=== PATIENT | female | born 1945 | race African-American/Black ===

== ENCOUNTER 2016-06-11 11:11 | Emergency (ER) | payer MEDICARE | END 2016-06-11 11:29 | disposition home or self-care (01) | LOC: NAV ERS 11:11 | DX: T16.1XXA Foreign body in right ear, initial encounter (principal); I10 Essential (primary) hypertension; F41.9 Anxiety disorder, unspecified; Z87.891 Personal history of nicotine dependence; Z79.899 Other long term (current) drug therapy | CPT/HCPCS: 99282 ==

== ENCOUNTER 2016-10-01 08:00 | Emergency (ER) | payer MEDICARE ==
[2016-10-01] MEDS ORDERED: HYDROcodone/Acetaminophen 10/325 mg Tablet ONE (08:24)
== END 2016-10-01 08:32 | disposition home or self-care (01) ==
LOC: NAV ERS 08:00
DX: J20.9 Acute bronchitis, unspecified (principal); I10 Essential (primary) hypertension; F41.9 Anxiety disorder, unspecified; Z87.891 Personal history of nicotine dependence; Z79.899 Other long term (current) drug therapy
CPT/HCPCS: 99283

== ENCOUNTER 2018-04-19 11:43 | Emergency (ER) | payer MEDICARE ==
[2018-04-19] MEDS ORDERED: cefTRIAXone\\ROCEPHIN 1 GM VIAL ONE (13:08)
[2018-04-19] MEDS ORDERED: methylPREDNISolone Acetate 40 mg/ml Vial ONE (13:08)
[2018-04-19] MEDS ORDERED: Lidocaine 1% (PF) 30 ML VIAL ONE (13:09)
== END 2018-04-19 13:36 | disposition home or self-care (01) ==
LOC: NAV ERS 11:43
DX: J02.9 Acute pharyngitis, unspecified (principal); I10 Essential (primary) hypertension; F41.9 Anxiety disorder, unspecified; J42 Unspecified chronic bronchitis; Z87.891 Personal history of nicotine dependence; Z79.899 Other long term (current) drug therapy
CPT/HCPCS: 87081; 87430; 96372; J0696; J1030; J2001

== ENCOUNTER 2018-04-30 16:53 | Outpatient (CLI) | payer MEDICARE ==
--- NOTE | 2018-04-30 17:53 | RAD ---
CHEST TWO VIEW: 04/30/18 HISTORY: Acute bronchitis. COMPARISON: None. FINDINGS: There is mild tortuosity of the thoracic aorta. No pneumothorax. No effusion. No focal air space cons olidation. IMPRESSION: No acute osseous abnormality. IMPRESSION: No acute intrathoracic abnormality. POS: DA
== END 2018-04-30 16:54 | disposition home or self-care (01) ==
LOC: NAV RAD 16:53
PROVIDERS: ATTEND Family Medicine
DX: J20.9 Acute bronchitis, unspecified (principal)
CPT/HCPCS: 71046

== ENCOUNTER 2019-01-20 11:05 | Emergency (ER) | payer MEDICARE ==
[2019-01-20] MEDS ORDERED: Ondansetron ODT 4 MG TAB ONE (11:45)
[2019-01-20] MEDS ORDERED: predniSONE 20 MG TAB ONE (11:47)
[2019-01-20] MEDS ORDERED: Azithromycin 250 MG TAB ONE (11:47)
--- NOTE | 2019-01-20 12:22 | RAD ---
Chest 2 views HISTORY: Cough. COMPARISON: 04/30/2018. FINDINGS: Cardiac silhouette and pulmonary vasculature remain upper limits of normal. No confluent ai rspace consolidation, pneumothorax, or pleural fluid apparent. Minimal linear scarring at the left posterior lung base. IMPRESSION: No active cardiopulmonary abnormalities are demonstrated.
== END 2019-01-20 12:52 | disposition home or self-care (01) ==
LOC: NAV ERS 11:05
DX: J11.1 Influenza due to unidentified influenza virus with other respiratory manifestations (principal); J20.9 Acute bronchitis, unspecified; I10 Essential (primary) hypertension; Z87.891 Personal history of nicotine dependence; Z79.899 Other long term (current) drug therapy; Z79.51 Long term (current) use of inhaled steroids
CPT/HCPCS: 71046; 87804; 94640; J7512; J7620; Q0162

== ENCOUNTER 2021-04-13 20:18 | Emergency (ER) | payer MEDICARE ==
[2021-04-13] MEDS ORDERED: Sodium Chloride 0.9% 1,000 ML ONE (20:45)
[2021-04-13] MEDS ORDERED: Ketorolac Tromethamine 30 MG/ML VIAL ONE (20:45)
[2021-04-13 20:54] LABS: #Basophils 0.1 thou/uL (0.0-0.2); #Lymphocytes 1.2 thou/uL (1.20-3.40); #Monocytes 0.2 thou/uL (0.11-0.59); #Neutrophils 6.1 thou/uL (1.40-6.50); %Basophils 0.9 % (0.0-1.0); %Eosinophils 0.5 % (0.0-10.0); %Lymphocytes 15.9 % (21.0-51.0); %Neutrophils 79.6 % (42.0-75.0); Hemoglobin 13.9 g/dL (12.0-16.0); Mean Corpuscular HGB CONC 32.2 g/dL (32.0-36.0); Mean Corpuscular Hemoglobin 30.8 pg (27.0-31.0); Mean Corpuscular Volume 95.6 fL (78.0-98.0); Mean Platelet Volume 10.2 fL (7.4-10.4); Platelet Count 250 thou/uL (130-400); RBC Distribution Width 12.7 % (11.5-14.5); White Blood Cell (WBC) Count 7.6 thou/uL (4.8-10.8)
[2021-04-13 21:08] LABS: ALT (SGPT) 76 U/L (8-55); AST (SGOT) 61 U/L (5-34); Alkaline Phosphatase 88 U/L (40-110); Anion Gap 14 mmol/L (10-20); BUN (Urea Nitrogen) 25 mg/dL (9.8-20.1); Bilirubin, Total 0.5 mg/dL (0.2-1.2); Calc. Creatinine Clearance 0 mL/min (70-130); Calcium 8.8 mg/dL (7.8-10.44); Carbon Dioxide 24 mmol/L (23-31); Chloride 105 mmol/L (98-107); Globulin 2.7 g/dL (2.4-3.5); Glucose 99 mg/dL (83-110); Potassium 3.7 mmol/L (3.5-5.1); Protein, Total 6.7 g/dL (5.8-8.1); Sodium 139 mmol/L (136-145)
== END 2021-04-13 21:36 | disposition home or self-care (01) ==
LOC: NAV ERS 20:18
DX: R52 Pain, unspecified (principal); R11.0 Nausea; R19.7 Diarrhea, unspecified; R05.9 Cough, unspecified; R63.0 Anorexia; R53.81 Other malaise; R06.02 Shortness of breath; I10 Essential (primary) hypertension; J42 Unspecified chronic bronchitis; Z20.822 Contact with and (suspected) exposure to COVID-19; Z68.45 Body mass index [BMI] 70 or greater, adult; Z87.891 Personal history of nicotine dependence; Z79.899 Other long term (current) drug therapy
CPT/HCPCS: 80053; 85025; 87804; 96374; J1885; J7050; U0003; U0005